=== PATIENT | male | born 1965 | race Caucasian/White ===

== ENCOUNTER 2018-05-07 05:34 | Day surgery (SDC) | payer OTHER ==
[2018-05-07] MEDS ORDERED: FENTAnyl 50 MCG/ML VIAL (06:25)
[2018-05-07] MEDS ORDERED: PROPOFOL 20 ML (06:25)
[2018-05-07] MEDS ORDERED: ROCURONIUM 50 MG INJ (06:25)
[2018-05-07] MEDS ORDERED: GLYCOPYRROLATE 0.4 MG INJ (06:25)
[2018-05-07] MEDS ORDERED: NEOSTIGMINE 3 MG/3 ML SYRINGE (06:25)
[2018-05-07] MEDS ORDERED: LIDOCAINE 2% (SDV) 5 ML INJ (06:25)
[2018-05-07] MEDS ORDERED: MIDAZOLAM 1 MG/ML 2 ML INJ (06:25)
[2018-05-07] MEDS ORDERED: DEXAMETHASONE 4 MG/ML 1 ML INJ (06:26)
[2018-05-07] MEDS ORDERED: ONDANSETRON 4 MG INJ ×2 (06:26→06:33)
[2018-05-07] MEDS ORDERED: SUGAMMADEX SODIUM 200 MG/2 ML VIAL IV (06:27)
[2018-05-07] MEDS ORDERED: ATROPINE 1 MG/10 ML SYRINGE IV (06:30)
[2018-05-07] MEDS ORDERED: ONDANSETRON 4 MG INJ IV (06:30)
[2018-05-07] MEDS ORDERED: morphine (1 MG/ML) 10ML SYRINGE IV ×3 (06:30)
[2018-05-07] MEDS ORDERED: OXYCODONE/ACETAMINOPHEN (5/325) TAB PO ×2 (06:30)
[2018-05-07] MEDS ORDERED: MIDAZOLAM 1 MG/ML 2 ML INJ IV (06:30)
[2018-05-07] MEDS ORDERED: FENTAnyl 50 MCG/ML VIAL IV ×2 (06:30)
[2018-05-07] MEDS ORDERED: LABETALOL HCL 20MG INJ IV (06:30)
[2018-05-07] MEDS ORDERED: HYDROmorphONE 1 MG/5 ML IV SYRINGE IV ×3 (06:30)
[2018-05-07] MEDS ORDERED: DIPHENHYDRAMINE 50 MG INJ IV (06:30)
[2018-05-07] MEDS ORDERED: MEPERIDINE 25 MG INJ IV (06:30)
[2018-05-07] MEDS ORDERED: EPHEDrine SULFATE 50 MG/5 ML SYG IV (06:30)
[2018-05-07] MEDS ORDERED: hydrALAzine 20 MG INJ IV (06:30)
[2018-05-07 06:46] LABS: ADD MAN DIFF? NO
[2018-05-07 06:49] LABS: BASOPHILS % 0.3 % (0.0-2.0); EOSINOPHILS # 0.2 10^3/ul (0.0-0.5); EOSINOPHILS % 2.6 % (0.0-7.0); HEMATOCRIT 43.4 % (42.0-52.0); HEMOGLOBIN 14.9 g/dl (14.0-18.0); LYMPHOCYTES # 2.2 10^3/ul (0.8-2.9); LYMPHOCYTES % 36.2 % (15.0-51.0); MEAN CORPUSCULAR HEMOGLOBIN 32.5 pg (29.0-33.0); MEAN CORPUSCULAR HGB CONC 34.3 g/dl (32.0-37.0); MEAN CORPUSCULAR VOLUME 94.6 fl (82.0-101.0); MEAN PLATELET VOLUME 10.3 fl (7.4-10.4); MONOCYTE # 0.8 10^3/ul (0.3-0.9); MONOCYTES % 12.8 % (0.0-11.0); NEUTROPHIL # 2.9 10^3/ul (1.6-7.5); NEUTROPHILS % 47.8 % (39.0-77.0); PLATELET COUNT 281 10^3/UL (140-415); RED BLOOD COUNT 4.59 10^6/ul (4.70-6.10); RED CELL DISTRIBUTION WIDTH 11.9 % (11.5-14.5)
[2018-05-07 06:49] LABS: WHITE BLOOD COUNT 6.1 10^3/ul (4.8-10.8)
[2018-05-07 06:52] LABS: ADD UMIC NO; UR ASCORBIC ACID NEGATIVE (NEGATIVE); UR BILIRUBIN (Dip) NEGATIVE (NEGATIVE); UR BLOOD (Dip) NEGATIVE (NEGATIVE); UR CLARITY CLEAR (CLEAR); UR COLOR YELLOW (YELLOW); UR GLUCOSE (Dip) NEGATIVE (NEGATIVE); UR KETONES (Dip) NEGATIVE (NEGATIVE); UR LEUKOCYTE ESTERASE (Dip) NEGATIVE Leu/ul (NEGATIVE); UR NITRITE (Dip) NEGATIVE (NEGATIVE); UR SPECIFIC GRAVITY (Dip) 1.023 (1.003-1.030); UR TOTAL PROTEIN (Dip) NEGATIVE (NEGATIVE); UR UROBILINOGEN (Dip) NEGATIVE (NEGATIVE)
[2018-05-07] MEDS ORDERED: NALOXONE (0.4 MG/ML) INJ (07:00)
[2018-05-07] MEDS ORDERED: CEFAZOLIN 1 GM INJ (07:00)
[2018-05-07] MEDS ORDERED: FLUMAZENIL 0.5 MG INJ (07:00)
[2018-05-07] MEDS ORDERED: ROPIVACAINE 0.5 % 30 ML VIAL (07:00)
[2018-05-07] MEDS: POLYMYXIN/BACITRACIN 1L IRRIG IRR (07:13)
[2018-05-07] MEDS ORDERED: LIDOCAINE 4% CR (07:40)
[2018-05-07] MEDS ORDERED: ATROPINE 1 MG/10 ML SYRINGE (07:53)
[2018-05-07] MEDS ORDERED: BUPIVACAINE LIPOSOME/PF 266 MG/20 ML VIAL INFIL (08:30)
[2018-05-07] MEDS: BUPIVACAINE 0.5% (SDV) 30 ML INJ (08:49)
[2018-05-07] MEDS: LIDOCAINE 1%/EPI 30 ML INJ (08:49)
== END 2018-05-07 12:34 | disposition home or self-care (01) ==
LOC: SDS 05:34
DX: M18.12 Unilateral primary osteoarthritis of first carpometacarpal joint, left hand (principal)
CPT/HCPCS: 25447; 73130-LT; 81003; 85025; 88304; 93005